=== PATIENT | male | born 1985 ===

== ENCOUNTER 2021-03-19 21:17 | Emergency (ER) | payer SELFPAY ==
[~2021-03-19] VITALS: Ht 182.9 cm; Wt 149.9 kg
[2021-03-19 21:19] VITALS: BP 132/93
--- NOTE | 2021-03-19 23:03 | NUR ---
[employer] ANALYST: PT WALKED BACK FROM LOBBY TO ROOM AT THIS TIME.
--- NOTE | 2021-03-19 23:07 | NUR ---
"MY R AM IS SWOLLEN. I WOKE UP YESTERDAY MORNING AND IT WAS SWOLLEN. ON SATURDAY I NOTICED IT WAS SORE THEN IT GOT BETTER. IT HURTS FROM THE TOP OF THE KNUCKLE TO THE MIDDLE OF MY FOREARM".
[2021-03-19] MEDS ORDERED: IBUPROFEN 600 MG TABLET PO ONE (23:30)
[2021-03-19] MEDS ORDERED: IBUPROFEN 600 MG TABLET ONE (23:32)
== END 2021-03-19 23:42 | disposition home or self-care (01) ==
LOC: ED 22:00
DX: M25.531 Pain in right wrist (principal)
CPT/HCPCS: 29125; 99283